=== PATIENT | male | born 1965 | race American Indian/Alaskan Native ===

== ENCOUNTER 2023-06-08 16:33 | Emergency (ER) | payer OTHER ==
[~2023-06-08] VITALS: Ht 177.8 cm; Wt 109.1 kg
--- NOTE | ~2023-06-08 | EKG ---
[facility] [address] [place], [place] [address] Draft EKG completed, results pending confirmation PATIENT NAME: MARY MCCULLOUGH Electrocardiogram DATE OF : 61 PHYSICIAN: PRELIMINARY REPORT #: [id number] REPORT IS CONFIDENTIAL AND NOT TO BE RELEASED WITHOUT AUTHORIZATION
[2023-06-08 17:58] LABS: BASOPHILS 1.5 % (0-2); EOSINOPHILS 3.7 % (0-6); HEMATOCRIT 36.1 % (35.0-50.0); HEMOGLOBIN 11.7 g/dL (12.0-18.0); LYMPHOCYTES 18.3 % (24-44); MCH 31.2 (27-36); MCHC 32.3 g/dl (30-36); MCV 96.6 fl (81-99); MONOCYTES 6.5 % (0-12); PLATELET COUNT 123 K/uL (140-440); RBC 3.74 M/ul (4.3-5.7); RDW 16.9 (10.5-15.0)
[2023-06-08 18:39] LABS: ALBUMIN 3.7 g/dL (3.4-5.0); BILIRUBIN, TOTAL 0.3 ng/dL (0.2-1.0); BUN/CREATININE RATIO 5.74 (6.0-28.6); CALCIUM 8.8 mg/dL (8.5-10.1); CREATININE, SERUM 14.62 mg/dL (0.70-1.30); PROTEIN, TOTAL 7.4 g/dL (6.4-8.2)
[2023-06-08 18:51] LABS: INFLUENZA B NAA NEGATIVE (NEGATIVE); RESPIRATORY SYNCYTIAL VIR NAA NEGATIVE (NEGATIVE)
[2023-06-08] MEDS ORDERED: COREG6.25 MG (20:08)
[2023-06-08] MEDS ORDERED: ZESTRIL5 MG (20:08)
[2023-06-08 21:20] LABS: ANION GAP 25.4 (7-21); BUN/CREATININE RATIO 5.96 (6.0-28.6); CALCIUM 9.5 mg/dL (8.5-10.1); CREATININE, SERUM 14.92 mg/dL (0.70-1.30); POTASSIUM 5.4 mmol/L (3.5-5.1)
[2023-06-09 02:45] LABS: ANION GAP 27.8 (7-21); BUN/CREATININE RATIO 5.96 (6.0-28.6); CALCIUM 9.9 mg/dL (8.5-10.1); CREATININE, SERUM 15.42 mg/dL (0.70-1.30); POTASSIUM 5.8 mmol/L (3.5-5.1)
[2023-06-09 07:35] LABS: ANION GAP 27.3 (7-21); BUN/CREATININE RATIO 5.93 (6.0-28.6); CALCIUM 9.3 mg/dL (8.5-10.1); CREATININE, SERUM 15.34 mg/dL (0.70-1.30); POTASSIUM 5.3 mmol/L (3.5-5.1)
[2023-06-09 08:30] VITALS: BP 193/101
== END 2023-06-09 08:34 | disposition short-term general hospital (02) ==
LOC: ED 16:33
PROVIDERS: Emergency Medicine; Family Medicine
DX: E87.5 Hyperkalemia (principal); N17.9 Acute kidney failure, unspecified; I12.0 Hypertensive chronic kidney disease with stage 5 chronic kidney disease or end stage renal disease; N18.6 End stage renal disease; Z99.2 Dependence on renal dialysis; Z79.899 Other long term (current) drug therapy
CPT/HCPCS: 36415; 71045; 80048; 80053; 83735; 83880; 85025; 87502; 93005; 93010; 94644; 96374; 96375; 99285-25; J0612; J1815; U0002